=== PATIENT | female | born 1980 | race Caucasian/White ===

== ENCOUNTER 2016-08-16 06:17 | Emergency (ER) | payer MEDICAID ==
[~2016-08-16] VITALS: Ht 172.7 cm; Wt 81.8 kg
[~2016-08-16 06:17] MED LIST: AMOXICILLI250 MG/5 M PO; CIPRO 500MG TA500 MG PO; DARVOCET-N-101 UDTAB PO; LORTAB 5/500 501 TAB PO; METHOTREXA2.5 MG/TAB PO; METHOTREXATE2.5 MG PO; NO HOME MEDICATIONS; PERCOCET 5/321 UDTAB PO; PHENERGAN 25 TA25 MG PO; PHENERGAN25 MG RC; PROZAC 20MG20 MG PO; TRAMADOL; ULTRAM50 MG PO
[2016-08-16 06:26] VITALS: BP 143/84; TEMP 98.4
[2016-08-16] MEDS ORDERED: CEFTIN 250250 MG/TAB PO (06:48)
[2016-08-16] MEDS ORDERED: FLONASEALLERGY NS (06:49)
[2016-08-16] MEDS ORDERED: ULTRAM 50MG TAB50 MG PO (07:18)
[2016-08-16] MEDS ORDERED: PREDNISONE20 MG PO (07:18)
[2016-08-16 07:48] VITALS: PULSE 84
== END 2016-08-16 07:45 | disposition home or self-care (01) ==
LOC: COL.ER 06:17
DX: M25.561 Pain in right knee (principal); M06.9 Rheumatoid arthritis, unspecified

== ENCOUNTER → 2022-02-10 | Outpatient (CLI) | payer MEDICAID ==
[~2022-02-10] MED LIST changes: +CEFTIN 250250 MG/TAB PO; +FLONASEALLERGY NS; +PREDNISONE20 MG PO; +ULTRAM 50MG TAB50 MG PO
== END ==
LOC: MC.RAD 06:49
DX: R92.1 Mammographic calcification found on diagnostic imaging of breast (principal)